=== PATIENT | female | born 1955 | race Caucasian/White ===

== ENCOUNTER → 2017-12-15 | Outpatient (CLI) | payer OTHER ==
[~2017-12-15] MED LIST: BUPR100CR PO; LITH300T PO; LITH450T PO; PANT40TA3 PO; SERO100T PO; TEMA30CA PO; VITACAP7 PO; XANA1TAB2 PO
--- NOTE | 2017-12-15 11:30 | RADRPT ---
EXAM DATE: 12/15/2017 11:17 AM EDT AGE/SEX: 62 years / Female INDICATIONS: Evaluate for pneumonia, pneumothorax, or any communicable disease. Pre op vulva surgery . CLINICAL DATA: This is the patient's initial encounter. Patient reports that signs and symptoms have been present for 1 day and indicates a pain score of 0/10. MEDICAL/SURGICAL HISTORY: None. None. COMPARISON: No prior exams available for comparison. FINDINGS: The lungs are clear without infiltrate, nodule, or mass. There is no appreciable pleural effusion for technique. Heart and mediastinum are unremarkable. CONCLUSION: No acute cardiopulmonary disease. Electronically signed by: Rebecca Mitchell MD 12/15/2017 11:29 AM EDT
[2017-12-15 12:01] LABS: AUTOMATED NEUTROPHIL # 2.9 TH/MM3 (1.8-7.7); BASOPHIL # 0.1 TH/MM3 (0-0.2); BASOPHIL % 1.1 % (0.0-2.0); EOSINOPHIL # 0.2 TH/MM3 (0-0.4); EOSINOPHIL % 4.8 % (0.0-4.0); HEMOGLOBIN 13.2 GM/DL (11.6-15.3); LYMPH % 26.4 % (9.0-44.0); LYMPHOCYTE # 1.2 TH/MM3 (1.0-4.8); MEAN CELL VOLUME 95.3 FL (80.0-100.0); MEAN CORPUSCULAR HEMOGLOBIN 32.4 PG (27.0-34.0); MEAN CORPUSCULAR HGB CONC 33.9 % (32.0-36.0); MEAN PLATELET VOLUME 7.6 FL (7.0-11.0); MONOCYTE # 0.3 TH/MM3 (0-0.9); NEUT % 60.7 % (16.0-70.0); PLATELET COUNT 351 TH/MM3 (150-450); RED BLOOD COUNT 4.09 MIL/MM3 (4.00-5.30); RED CELL DISTRIBUTION WIDTH 12.9 % (11.6-17.2); WHITE BLOOD COUNT 4.7 TH/MM3 (4.0-11.0)
[2017-12-15 12:04] LABS: PROTHROMBIN TIME - PATIENT 10.1 SEC (9.8-11.6)
[2017-12-15 12:13] LABS: ALBUMIN 3.8 GM/DL (3.4-5.0); AST (GOT) 15 U/L (15-37); BICARBONATE 27.7 MEQ/L (21.0-32.0); BLOOD UREA NITROGEN 8 MG/DL (7-18); CALCIUM 9.6 MG/DL (8.5-10.1); CHLORIDE 108 MEQ/L (98-107); CREATININE 1.09 MG/DL (0.50-1.00); GLOMERULAR FILTRATION RATE 51 ML/MIN (>89); GLUCOSE,FASTING 72 MG/DL (74-99); SODIUM (NA) 144 MEQ/L (136-145)
[2017-12-15 12:14] LABS: ALT (GPT) 29 U/L (10-53)
[2017-12-15 12:16] LABS: ALKALINE PHOSPHATASE 78 U/L (45-117); TOTAL BILIRUBIN ADULT 0.3 MG/DL (0.2-1.0); TOTAL PROTEIN 6.9 GM/DL (6.4-8.2)
--- NOTE | 2017-12-15 15:10 | EKG ---
Date Performed: 12/15/2017 Time Performed: 10:36:49 PTAGE: 62 years EKG: SINUS BRADYCARDIA LOW QRS VOLTAGE IN EXTREMITY LEADS MODERATE INTRAVENTRICULAR CONDUCTION D ELAY BORDERLINE ECG NO PREVIOUS TRACING DOCTOR: Gloria Marrero Interpretating Date/Time 12/15/2017 15:09:33
== END ==
LOC: CPRE 10:14
PROVIDERS: ATTEND Obstetrics & Gynecology Gynecologic Oncology
DX: Z01.810 Encounter for preprocedural cardiovascular examination (principal); Z01.812 Encounter for preprocedural laboratory examination; Z01.818 Encounter for other preprocedural examination; N90.3 Dysplasia of vulva, unspecified; R94.31 Abnormal electrocardiogram [ECG] [EKG]; R00.1 Bradycardia, unspecified
CPT/HCPCS: 36415; 71046; 80053; 85025; 85610; 85730; 93005

== ENCOUNTER → 2017-12-20 | Day surgery (SDC) | payer OTHER ==
[~2017-12-20] VITALS: Ht 165.1 cm; Wt 70.2 kg
[~2017-12-20] MED LIST changes: +*MEPERIDINE 25 MG INJ VIAL PERIprocedural Use ONLY ONE; +*morphine SULFATE 10 MG/ML PERIprocedure ONLY ONE; +CHLORHEXIDINE GLUCONATE 2 % 1 PACK (2 CLOTHS) TOPICAL PRN; +DO NOT ADM ANY ANTICOAGULANT DRUGS PRN; +INSULIN HUMAN REGULAR 1,000 UNITS/10 ML VIAL SQ PRN; +KETOROLAC TROMETHAMINE 30 MG/ML (IVP) VIAL IV PUSH ONE; +LACTATED RINGER'S 1000 ML IV PRN; +LIDOCAINE 1%/EPINEPHrine 1:100,000 SOLN 20 ML VIAL ONE; +METOPROLOL TARTRATE 25 MG TAB PO PRN; +MIDAZOLAM HCL 2 MG/2 ML VIAL ONE; +MORPHINE SULFATE 4 MG/ML INJ ONE; +POVIDONE IODINE 5% (ANTISEPSIS KIT) 4 APPLICATIONS EACH NARE PRN; +PROMETHAZINE INJ 25 MG/ML VIAL ONE; +SODIUM CHLORID 0.9% 500 ML IV PRN; +metroNIDAZOLE 500 MG INJ 100 ML IV ONE; +oxyCODONE/ACETAMINOPHEN 5 MG/325 MG TAB PO PRN
[2017-12-20 16:25] VITALS: BP 124/81; PULSE 67; RESP 18; TEMP 97.2; O2SAT 93
--- NOTE | 2017-12-21 08:00 | MP ---
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 PROCEDURE PERFORMED: Examination under anesthesia, wide local excision of the posterior vulva and perineum. 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 ANESTHESIA: Laryngeal mask. ESTIMATED BLOOD LOSS: Less than 20 mL. HISTORY: A 62-year-old female found on exam to have fairly well demarcated area on the perineum, posterior right vulva. Biopsy showed high-grade dysplasia. Clinically, it appeared to be high-grade dysplasia without overt evidence of invasive disease. She was counseled regarding these findings and recommendation for surgical excision. She is seen again in the preoperative holding area where the findings and plan of care are again reviewed. Questions are asked and answered. She expressed good understanding and agreed to move forward with surgery. FINDINGS: On exam under anesthesia are as previously described, approximately 1.5 cm well demarcated, slightly raised white area on the posterior right vulva and perineum. No other abnormal areas. The lesion became more prominent after application of dilute acetic acid and on prior colposcopy, no other abnormalities detected. DESCRIPTION OF PROCEDURE: She is taken to the operating room and placed in dorsal lithotomy position after anesthesia is administered. A timeout is undertaken. She is identified by site recognition and hospital ID bracelet and the proposed procedure is reviewed and confirmed. Exam under anesthesia was performed with findings as described above. She was prepped and draped in sterile fashion. A surgical marker was used to outline a margin of normal-appearing skin circumferentially around the lesion in an elliptical fashion. Lidocaine, epinephrine injected in the subcutaneous tissue. Sharp dissection with a scalpel was used to outline the excision and then scissor dissection was used to remove skin and subcutaneous tissue circumferentially. The lesion was removed, labeled as posterior vulva/perineum with a suture placed at the 12 o'clock position, which corresponds to the vaginal margin. The deeper levels were reapproximated and rendered hemostatic with interrupted 3-0 Vicryl sutures until the skin edges were in close proximity without tension, at which point the skin edges were closed with interrupted 3-0 Vicryl sutures. This rendered the area completely hemostatic. The entire lesion with a margin of normal-appearing skin was removed. The closure was without tension and was with satisfactory cosmetic results. Pelvic exam confirmed there were no remaining foreign objects in the vagina. Preliminary and final counts were correct. She was returned to dorsal supine position and was pending reversal of anesthesia, when I left the operating room to precede her to the postanesthesia care unit. MD LEANDER Dubois/ALLISON , 07:39 AM , 07:59 AM
== END | disposition home or self-care (01) ==
LOC: HSDC 10:39
PROVIDERS: ATTEND Obstetrics & Gynecology Gynecologic Oncology
DX: D07.1 Carcinoma in situ of vulva (principal); D09.8 Carcinoma in situ of other specified sites; J44.9 Chronic obstructive pulmonary disease, unspecified; K21.9 Gastro-esophageal reflux disease without esophagitis; Q24.9 Congenital malformation of heart, unspecified; Z01.818 Encounter for other preprocedural examination
CPT/HCPCS: 00400; 11622; 12041; 86850; 86900; 86901; 88305; J2175; J2250; J2270; J2550; J3010; J7040